=== PATIENT | male | born 1970 | race African-American/Black ===

== ENCOUNTER 2023-09-16 13:24 | Emergency (ER) | payer OTHER, SELFPAY ==
[~2023-09-16] VITALS: Ht 170.2 cm; Wt 82.7 kg
[2023-09-16] MEDS: PERCOCET 5MG/325MG TAB PO ONE (15:25)
[2023-09-16] MEDS ORDERED: MIRA3350 PO (15:37)
[2023-09-16] MEDS ORDERED: PERC5TAB12 PO (15:37)
[2023-09-16 15:53] VITALS: BP 142/93; TEMP 98; O2SAT 98
== END 2023-09-16 15:54 | disposition home or self-care (01) ==
LOC: M ED 13:24
DX: S92.254A Nondisplaced fracture of navicular [scaphoid] of right foot, initial encounter for closed fracture (principal); Y92.9 Unspecified place or not applicable; Y93.9 Activity, unspecified; Y99.0 Civilian activity done for income or pay; Z79.899 Other long term (current) drug therapy

== ENCOUNTER → 2024-06-24 | Outpatient (CLI) | payer OTHER ==
[~2024-06-24] MED LIST: MIRA3350 PO; PERC5TAB12 PO
[2024-06-24 14:04] LABS: ALBUMIN 4.4 G/DL (3.2-5.2); BASO % 0.5 % (0.0-1.0); BILIRUBIN,TOTAL 0.9 MG/DL (0.3-1.2); CALCIUM LEVEL 9.3 MG/DL (8.5-10.1); CHOLESTEROL RISK RATIO 3.28 (<5); CREATININE FOR GFR 1.1 MG/DL (0.70-1.30); EOS # 0.1 10^3/uL (0.0-0.5); EOS % 1.9 % (0.0-3.0); FREE T4 1.43 NG/DL (0.89-1.76); GLOMERULAR FILTRATION RATE 79.8 (>56); HDL CHOLESTEROL 59.7 MG/DL (>40); HEMATOCRIT 46.6 % (42.0-52.0); HEMOGLOBIN 15.2 g/dl (13.5-17.5); LDL CHOLESTEROL 121.9 MG/DL (<100); LYMPH # 2.1 10^3/uL (1.5-5.0); LYMPH % 50.2 % (24.0-44.0); MEAN CORPUSCULAR HEMOGLOBIN 28.3 pg (27.0-33.0); MEAN CORPUSCULAR HGB CONC 32.6 g/dl (32.0-36.5); MEAN CORPUSCULAR VOLUME 86.8 fl (80.0-96.0); MONO # 0.4 10^3/uL (0.0-0.8); MONO % 8.5 % (2.0-8.0); NEUTROPHILS # 1.6 10^3/uL (1.5-8.5); NEUTROPHILS % 38.7 % (36.0-66.0); NON-HDL-C 136.3 MG/DL; PLATELET COUNT, AUTOMATED 216 10^3/uL (150-450); POTASSIUM SERUM 4.5 MMOL/L (3.5-5.1); RED BLOOD COUNT 5.37 10^6/uL (4.30-6.10); THYROID STIMULATING HORMONE 1.07 uIU/ML (0.55-4.78); TOTAL PROTEIN 8.2 G/DL (5.7-8.2); WHITE BLOOD COUNT 4.1 10^3/uL (4.0-10.0)
[2024-06-24 14:20] LABS: HEMOGLOBIN A1c 5.6 % (4.0-6.0)
[2024-06-25 18:07] LABS: VITAMIN D 1,25 DIHYDROXY 62.2 pg/mL (24.8-81.5)
== END ==
LOC: M PLALAB 11:17
PROVIDERS: ATTEND Student in an Organized Health Care Education/Training Program
DX: Z76.89 Persons encountering health services in other specified circumstances (principal)